=== PATIENT | female | born 1940 | race Hispanic/Latino ===

== ENCOUNTER 2018-03-22 23:09 | Emergency (ER) | payer MEDICARE ==
[2018-03-22 23:21] VITALS: BMI 30.9
[2018-03-22 23:35] VITALS: BP 140/94; PULSE 89; RESP 19; TEMP 98.2; O2SAT 94
--- NOTE | 2018-03-22 23:42 | ED PDOC ---
Arrival/HPI - General Historian: Patient - History of Present Illness Narrative History of Present Illness (Text): 03/22/18 23:42 78 yo F s/p trip and fall at 6pm while on her way to [facility]. Reports that she injured her L knee and sustained a bruise to her L eyebrow. States that she may have hit her head on the ground, but is unsure. Reports no LOC, N/V, neck pain, back pain, hip pain or any other extremity injury. <Erna Lopez PA-C - Last Filed: 03/23/18 01:12> <Gurpreet Tolbert - Last Filed: 03/23/18 02:32> - General Chief Complaint: Lower Extremity Problem/Injury Time Seen by Provider: 03/22/18 23:23 Past Medical History - Infectious Disease Hx of Infectious Diseases: None - Tetanus Immunization Tetanus Immunization: Up to Date - Cardiac Hx Hypertension: Yes Other/Comment: cardiac cath x 8-9 stents - Pulmonary Other/Comment: SOB/RODRÍGUEZ - Neurological Hx Paralysis: No - Hematological/Oncological Hx Blood Transfusions: No - Musculoskeletal/Rheumatological Hx Musculoskeletal Disorders: No - Gastrointestinal Hx Constipation: Yes Other/Comment: SBO h/o bowel resection - Psychiatric Hx Emotional Abuse: No Hx Physical Abuse: No Hx Substance Use: No - Past Surgical History Past Surgical History: No Previous - Surgical History Hx Cardiac Catheterization: Yes (stents) Other/Comment: bowel resection - Anesthesia Hx Anesthesia: Yes Hx Anesthesia Reactions: No Hx Malignant Hyperthermia: No - Suicidal Assessment Feels Threatened In Home Enviroment: No <Erna Lopez PA-C - Last Filed: 03/23/18 01:12> Family/Social History Family/Social History: Unknown Family HX Smoking Status: Never Smoked Hx Alcohol Use: No Hx Substance Use: No Hx Substance Use Treatment: No <Erna Lopez PA-C - Last Filed: 03/23/18 01:12> Allergies/Home Meds <Erna Lopez PA-C - Last Filed: 03/23/18 01:12> <Gurpreet Tolbert - Last Filed: 03/23/18 02:32> Allergies/Adverse Reactions: Allergies No Known Allergies Allergy (Verified 05/17/13 18:48) Home Medications: Home Meds Medication Instructions Recorded Confirmed Atorvastatin Calcium [Lipitor] 40 mg PO DAILY 05/17/13 03/22/18 Nitroglycerin 0.2 mg/hr 0.2 mg TD DAILY 02/18/15 03/22/18 [Nitroglycerin Transdermal System] Clopidogrel [Plavix] 75 mg PO DAILY 03/16/16 03/22/18 Irbesartan 1 tab PO DAILY 03/22/18 03/22/18 RX: Metoprolol Tartrate [Lopressor] 1 tab PO BID 03/22/18 03/22/18 Review of Systems - Review of Systems Constitutional: absent: Fatigue, Fevers Respiratory: absent: SOB, Cough Cardiovascular: absent: Chest Pain, Palpitations Gastrointestinal: absent: Abdominal Pain, Diarrhea, Vomiting Musculoskeletal: Arthralgias. absent: Back Pain, Neck Pain, Joint Swelling Skin: absent: Rash, Pruritis, Skin Lesions Neurological: absent: Headache, Dizziness <Erna Lopez PA-C - Last Filed: 03/23/18 01:12> Physical Exam Vital Signs Temp Pulse Resp BP Pulse Ox 03/22/18 23:34 98.2 F 89 19 140/94 H 94 L Temperature: Afebrile Blood Pressure: Normal Pulse: Regular Respiratory Rate: Normal Appearance: Positive for: Well-Appearing, Non-Toxic, Comfortable Pain Distress: None Mental Status: Positive for: Alert and Oriented X 3 - Systems Exam Head: Present: Atraumatic, Normocephalic, Ecchymosis (+small ~2cm area of ecchymosis to the L eyebrow) Pupils: Present: PERRL Extroacular Muscles: Present: EOMI Conjunctiva: Present: Normal Mouth: Present: Moist Mucous Membranes Neck: Present: Normal Range of Motion. No: MIDLINE TENDERNESS Respiratory/Chest: Present: Clear to Auscultation, Good Air Exchange. No: Respiratory Distress, Accessory Muscle Use, Tender to Palpation Cardiovascular: Present: Regular Rate and Rhythm, Normal S1, S2. No: Murmurs Abdomen: No: Tenderness, Distention, Peritoneal Signs Back: Present: Normal Inspection. No: Midline Tenderness Upper Extremity: Present: Normal Inspection. No: Cyanosis, Edema Lower Extremity: Present: Normal Inspection, NORMAL PULSES, Normal ROM, Neurovascularly Intact, Capillary Refill < 2 s. No: Edema, Tenderness, Swelling, Deformity, Temperature Abnormalties Neurological: Present: GCS=15, CN II-XII Intact, Speech Normal Skin: Present: Warm, Dry, Normal Color. No: Rashes Psychiatric: Present: Alert, Oriented x 3, Normal Insight, Normal Concentration <Erna Lopez PA-C - Last Filed: 03/23/18 01:12> Vital Signs Temp Pulse Resp BP Pulse Ox 03/22/18 23:34 98.2 F 89 19 140/94 H 94 L <Gurpreet Tolbert - Last Filed: 03/23/18 02:32> Medical Decision Making ED Course and Treatment: 03/22/18 23:38 Plan : - head CT - L knee XR CT head : 1. There is generalized atrophy noted as demonstrated by symmetrical dilatation of ventricles and sulci. 2. 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 3. No acute intracrani al pathology. Floyd cook MD 03/23/18 0110 XR L Knee : moderate djd, no fracture, as read by MONIE Diagnostic results d/w the patient in great detail. Bradley wrap applied. Advised RICE to the knee. Patient instructed on crutch walking. Advised to follow up with primary care physician in 1-2 days without fail. Return to the emergency room at any time for any new or worsening symptoms. Patient states she fully agrees with and understands discharge instructions. States that she agrees with the plan and disposition. Verbalized and repeated discharge instructions and plan. I have given the patient opportunity to ask any additional questions. - RAD Interpretation Radiology Orders: 03/22/18 23:23 KNEE LEFT 2 VIEWS (AP & LAT) [RAD] Stat 03/22/18 23:30 HEAD W/O CONTRAST [CT] Stat - Medication Orders Current Medication Orders: Discontinued Medications Acetaminophen (Tylenol 325mg Tab) 975 mg PO STAT STA Stop: 03/22/18 23:24 <Erna Lopez PA-C - Last Filed: 03/23/18 01:12> - RAD Interpretation Radiology Orders: 03/22/18 23:23 KNEE LEFT 2 VIEWS (AP & LAT) [RAD] Stat 03/22/18 23:30 HEAD W/O CONTRAST [CT] Stat - Medication Orders Current Medication Orders: Discontinued Medications Acetaminophen (Tylenol 325mg Tab) 975 mg PO STAT STA Stop: 03/22/18 23:24 Last Admin: 03/23/18 01:23 Dose: 975 mg MAR Pain/Vitals Document 03/23/18 01:23 RE (Rec: 03/23/18 01:29 RE [email or web address]) Pain Reassessment Is This A Pain ReAssessment? No Sleep Is patient sleeping during reassessment? No Presence of Pain Presence of Pain Yes Pain Scale Used Protocol: PSCALES Pain Scale Used Numeric Location Left, Right or Bilateral Left Pain Location Body Site Knee Description Acute <Gurpreet Tolbert - Last Filed: 03/23/18 02:32> - PA / CUSTOMER ACCOUNT EXECUTIVE / Resident Statement MD/DO has reviewed & agrees with the documentation as recorded. <Erna Lopez PA-C - Last Filed: 03/23/18 01:12> Disposition/Present on Arrival - Present on Arrival Any Indicators Present on Arrival: No History of DVT/PE: No History of Uncontrolled Diabetes: No Urinary Catheter: No History of Decub. Ulcer: No History Surgical Site Infection Following: None - Disposition Have Diagnosis and Disposition been Completed?: Yes Disposition Time: 01:15 Patient Plan: Discharge <Erna Lopez PA-C - Last Filed: 03/23/18 01:12> <Gurpreet Tolbert - Last Filed: 03/23/18 02:32> - Disposition Diagnosis: Head injury, Contracture, left knee Disposition: HOME/ ROUTINE Condition: STABLE Discharge Instructions (ExitCare): Closed Head Injury, Contusion (DC) Additional Instructions: Thank you for letting us take care of you today. You were treated for head injury, contusion L knee. The emergency medical care you received today was directed at your acute symptoms. Take only tylenol for pain. It may take several days for your symptoms to resolve. Return to the Emergency Department if your symptoms worsen, do not improve, or if you have any other problems. Please contact your doctor in 2 days for re-evaluation and follow up. Bring any paperwork you were given at discharge with you along with any medications you are taking to your follow up visit. Our treatment cannot replace ongoing medical care by a primary care provider (PCP) outside of the emergency department. Thank you for allowing the [facility] team to be part of your care today. If you had an X-Ray or CT scan: A Radiologist will review the ED reading if any change in treatment is needed we will contact you. Forms: Access [employer] ([place])
--- NOTE | 2018-03-23 11:24 | RAD ---
Date of service: 03/23/2018 PROCEDURE: Left Knee Radiographs. HISTORY: Pain. COMPARISON: None. FINDINGS: BONES: Normal. No fracture. JOINTS: Moderate tricompartmental osteoarthritis most profound at the patellofemoral articulation. No articular erosions. JOINT EFFUSION: None. OTHER FINDINGS: None. IMPRESSION: Tricompartmental osteoarthritis. No fracture
--- NOTE | 2018-03-23 15:39 | CT ---
Date of service: 03/22/2018 PROCEDURE: CT HEAD WITHOUT CONTRAST. HISTORY: head trauma COMPARISON: 05/17/2013 TECHNIQUE: Axial computed tomography images were obtained through the head/brain without intravenous contrast. Radiation dose: Total exam DLP = 907.22 mGy-cm. This CT exam was performed using one or more of the following dose reduction techniques: Automated exposure control, adjustment of the mA and/or kV according to patient size, and/or use of iterative reconstruction technique. FINDINGS: HEMORRHAGE: No intracranial hemorrhage. BRAIN: No mass effect or edema. Minimal diffuse cerebral atrophy. Moderate patchy and confluent periventricular and deep/subcortical white matter lucency consistent with microvascular ischemic change. No evidence of acute infarct. VENTRICLES: Unremarkable. No hydrocephalus. CALVARIUM: Unremarkable. PARANASAL SINUSES: Unremarkable as visualized. No significant inflammatory changes. MASTOID AIR CELLS: Unremarkable as visualized. No inflammatory changes. OTHER FINDINGS: None. IMPRESSION: No intracranial hemorrhage. Age appropriate involutional changes. Otherwise unremarkable. The preliminary findings for this examination were reported by [facility] at 1:10 a.m. on 03/23/2018. There is concurrence of this report with the preliminary findings.
== END 2018-03-23 02:10 | disposition home or self-care (01) ==
LOC: ED 23:09
DX: S09.90XA Unspecified injury of head, initial encounter (principal); W01.0XXA Fall on same level from slipping, tripping and stumbling without subsequent striking against object, initial encounter; Y92.89 Other specified places as the place of occurrence of the external cause; M24.562 Contracture, left knee

== ENCOUNTER 2018-03-26 11:56 | Inpatient (IN) | payer MEDICARE, OTHER ==
[2018-03-26 11:58] VITALS: BMI 31.7
--- NOTE | 2018-03-26 12:33 | ED PDOC ---
Arrival/HPI - General Chief Complaint: Lower Extremity Problem/Injury Time Seen by Provider: 03/26/18 12:00 Historian: Patient - History of Present Illness Narrative History of Present Illness (Text): 03/26/18 12:33 78 year old female, with past medical history of cardiac cetheterization with stents placement and on Plavix, presents to the Emergency Department complaining of left knee discomfort s/p fall prior to arrival. Patient states she was walking to the kitchen with her walker, when she tripped and had a mechanical fall with no head injury or any loss of consciousness. Patient informs worsening left knee discomfort with flexion secondary to the fall. Patient reports similar mechanical fall on Saturday and was seen in the ED with no acute findings. Patient denies any other somatic complaints. Patient denies any fever, chills, nausea, vomiting, diarrhea, abdominal pain, chest pain, shortness of breath, cough, headache, dizziness, neck pain, back pain, or any other complaints. PMD: Dr. Lopez Time/Duration: Prior to Arrival Symptom Onset: Gradual Symptom Course: Unchanged Quality: Aching Activities at Onset: Light Context: Home Past Medical History - Provider Review Nursing Documentation Reviewed: Yes - Infectious Disease Hx of Infectious Diseases: None - Tetanus Immunization Tetanus Immunization: Up to Date - Cardiac Hx Hypertension: Yes Other/Comment: cardiac cath x 8-9 stents - Pulmonary Other/Comment: SOB/RODRÍGUEZ - Neurological Hx Paralysis: No - Hematological/Oncological Hx Blood Transfusions: No - Musculoskeletal/Rheumatological Hx Musculoskeletal Disorders: No - Gastrointestinal Hx Constipation: Yes Other/Comment: SBO h/o bowel resection - Psychiatric Hx Emotional Abuse: No Hx Physical Abuse: No Hx Substance Use: No - Past Surgical History Past Surgical History: No Previous - Surgical History Hx Cardiac Catheterization: Yes (stents) Other/Comment: bowel resection - Anesthesia Hx Anesthesia: Yes Hx Anesthesia Reactions: No Hx Malignant Hyperthermia: No - Suicidal Assessment Feels Threatened In Home Enviroment: No Family/Social History - Physician Review Nursing Documentation Reviewed: Yes Family/Social History: No Known Family HX Smoking Status: Never Smoked Hx Alcohol Use: No Hx Substance Use: No Hx Substance Use Treatment: No Allergies/Home Meds Allergies/Adverse Reactions: Allergies No Known Allergies Allergy (Verified 03/26/18 18:49) Home Medications: Home Meds Medication Instructions Recorded Confirmed Atorvastatin Calcium [Lipitor] 40 mg PO DAILY 05/17/13 03/26/18 Nitroglycerin 0.2 mg/hr 0.2 mg TD DAILY 02/18/15 03/26/18 [Nitroglycerin Transdermal System] Clopidogrel [Plavix] 75 mg PO DAILY 03/16/16 03/26/18 Irbesartan 1 tab PO DAILY 03/22/18 03/26/18 RX: Metoprolol Tartrate [Lopressor] 1 tab PO BID 03/22/18 03/26/18 RX: traMADol [Ultram] 50 mg PO BID PRN 03/26/18 03/26/18 Review of Systems - Physician Review All systems were reviewed & negative as marked: Yes - Review of Systems Constitutional: absent: Fevers Respiratory: absent: SOB, Cough Cardiovascular: absent: Chest Pain Gastrointestinal: absent: Abdominal Pain, Diarrhea, Nausea, Vomiting Musculoskeletal: Arthralgias (Left knee pain). absent: Back Pain, Neck Pain Neurological: absent: Headache, Dizziness Physical Exam Vital Signs Reviewed: Yes Vital Signs Temp Pulse Resp BP Pulse Ox 03/26/18 12:03 98.5 F 72 18 125/68 96 Temperature: Afebrile Blood Pressure: Normal Pulse: Regular Respiratory Rate: Normal Appearance: Positive for: Well-Appearing, Non-Toxic, Comfortable Pain Distress: None Mental Status: Positive for: Alert and Oriented X 3 - Systems Exam Head: Present: Atraumatic, Normocephalic Pupils: Present: PERRL Extroacular Muscles: Present: EOMI Conjunctiva: Present: Normal Mouth: Present: Moist Mucous Membranes Neck: Present: Normal Range of Motion Respiratory/Chest: Present: Clear to Auscultation, Good Air Exchange. No: Respiratory Distress, Accessory Muscle Use Cardiovascular: Present: Regular Rate and Rhythm, Normal S1, S2. No: Murmurs Abdomen: No: Tenderness, Distention, Peritoneal Signs Back: Present: Normal Inspection Upper Extremity: Present: Normal Inspection. No: Cyanosis, Edema Lower Extremity: Present: Tenderness (left knee tenderness). No: Edema Neurological: Present: GCS=15, CN II-XII Intact, Speech Normal Skin: Present: Warm, Dry, Normal Color. No: Rashes Psychiatric: Present: Alert, Oriented x 3, Normal Insight, Normal Concentration Medical Decision Making ED Course and Treatment: 03/26/18 12:30 Impression: 78 year old female presents to the Emergency Department complaining of left knee discomfort s/p fall. Differential Diagnosis included but are not limited to: fracture Plan: -- CT of left Knee -- Tylenol -- Reassess and disposition Prior Visits: Notes and results from previous visits were reviewed. Progress Notes: 03/26/18 13:10 CT of left knee reviewed by radiologist, shows: FINDINGS: There are 2 separate vertically oriented fracture lines in the proximal tibia which extend into the joint surface. The wider fracture line is seen on the medial side of the tibial spine. There is a small joint effusion. Degenerative changes are seen with osteophytes arising from the femoral condyles and patella. There is bony demineralization. IMPRESSION: Comminuted vertically oriented intra-articular fractures of the proximal tibia 03/26/18 13:[address] Myles, who is aware and agrees to evaluate patient at bedside. 03/26/18 17:25 EKG: Ordered, reviewed, and independently interpreted the EKG. Rate :79 BPM Rhythm : NSR Interpretation : LBBB.No interval change from 07/25. 03/26/18 19:42 accepted by [facility]. - RAD Interpretation Radiology Orders: 03/26/18 12:23 KNEE WITHOUT CONTRAST LEFT [CT] Stat Steam Finisher: Radiologist - EKG Interpretation Interpreted by ED Physician: Yes Type: 12 lead EKG - Medication Orders Current Medication Orders: Acetaminophen (Tylenol 325mg Tab) 975 mg PO STAT STA Stop: 03/26/18 12:25 - Scribe Statement The provider has reviewed the documentation as recorded by the Scribe Anita Gusman. All medical record entries made by the Scribe were at my direction and personally dictated by me. I have reviewed the chart and agree that the record accurately reflects my personal performance of the history, physical exam, medical decision making, and the department course for this patient. I have also personally directed, reviewed, and agree with the discharge instructions and disposition. Disposition/Present on Arrival - Present on Arrival Any Indicators Present on Arrival: No History of DVT/PE: No History of Uncontrolled Diabetes: No Urinary Catheter: No History of Decub. Ulcer: No History Surgical Site Infection Following: None - Disposition Have Diagnosis and Disposition been Completed?: Yes Diagnosis: Tibial fracture Disposition: HOSPITALIZED Disposition Time: 05:00 Condition: STABLE
--- NOTE | 2018-03-26 13:31 | CT ---
Date of service: 03/26/2018 PROCEDURE: CT of the left knee without contrast HISTORY: fall, persistent pain COMPARISON: TECHNIQUE: Radiation dose: Total exam DLP = 405.06 mGy-cm. This CT exam was performed using one or more of the following dose reduction techniques: Automated exposure control, adjustment of the mA and/or kV according to patient size, and/or use of iterative reconstruction technique. FINDINGS: There are 2 separate vertically oriented fracture lines in the proximal tibia which extend into the joint surface. The wider fracture line is seen on the medial side of the tibial spine. There is a small joint effusion. Degenerative changes are seen with osteophytes arising from the femoral condyles and patella. There is bony demineralization. IMPRESSION: Comminuted vertically oriented intra-articular fractures of the proximal tibia
[2018-03-26 14:39] LABS: BASO # 0.05 K/mm3 (0.0-2.0); BASO % 0.4 % (0.0-3.0); EOS # 0.2 (0.0-0.7); EOS % 1.3 % (1.5-5.0); GRAN # 8.66 (1.4-6.5); GRAN % 76.7 % (50.0-68.0); HEMOGLOBIN 13.3 g/dL (12.0-16.0); LYMPH # 1.1 (1.2-3.4); LYMPH % 9.6 % (22.0-35.0); MEAN CELL VOLUME 90.4 fl (80.0-105.0); MEAN CORPUSCULAR HEMOGLOBIN 29.1 pg (25.0-35.0); MEAN CORPUSCULAR HGB CONC 32.2 g/dl (31.0-37.0); MEAN PLATELET VOLUME 10.6 fl (7.0-11.0); MONO # 1.4 (0.1-0.6); RBC 4.57 10^6/uL (3.5-6.1); RED CELL DISTRIBUTION WIDTH 14.7 % (11.5-14.5); WHITE BLOOD COUNT 11.3 10^3/ul (4.5-11.0)
[2018-03-26 14:48] LABS: ALB/GLOB RATIO 1.2 (1.1-1.8); ALBUMIN 4.2 g/dL (3.0-4.8); ALT/SGPT 29 U/L (7-56); AST/SGOT 41 U/L (14-36); BLOOD UREA NITROGEN 21 mg/dL (7-21); CALCIUM 9.7 mg/dL (8.4-10.5); GFR NON-AFRICAN AMERICAN > 60; INR 0.94; PARTIAL THROMBOPLASTIN TIME 22.9 Seconds (25.1-36.5); PROTHROMBIN TIME 10.7 SECONDS (9.4-12.5)
[2018-03-26] MEDS ORDERED: Morphine 2 mg/ml ISec IVP PRN (15:26)
--- NOTE | 2018-03-26 15:56 | RAD ---
Date of service: 03/26/2018 HISTORY: preop COMPARISON: 02/04/2015 FINDINGS: LUNGS: No active pulmonary disease. PLEURA: No significant pleural effusion identified, no pneumothorax apparent. CARDIOVASCULAR: No radiographic findings to suggest acute or significant cardiovascular disease. OSSEOUS STRUCTURES: No significant abnormalities. VISUALIZED UPPER ABDOMEN: Normal. OTHER FINDINGS: None. IMPRESSION: No active disease. No significant interval change compared to the prior examination(s).
--- NOTE | 2018-03-26 21:22 | CP.PCM.HP ---
<TahirAhsan - Last Filed: 03/26/18 21:40> History of Present Illness - History of Present Illness History of Present Illness: Ahsan Haro DO PGY1 - Internal Meidicine Temperature Inspector - Hospital H&P 78F w/ a PMH of CAD s/p stenting; most recent stent 2015 (ELENA), HTN, HLD, presented to [facility] on 03/26 after mechanical fall. Patient reported this past Saturday she tripped on her shoe and had injured her L knee at [facility]. Patient was discharged from ED on 03/22/17 w/ instructions for crutches, RICE and Rx for ultram. CT head performed on saturday showed no acute intracranial findings. She reported that again today while using a walker due to saturday's leg pain, she fell again. She denies any LOC, neurologic, or cardiologic symptoms at time of fall. Repeat CT Head showed no acute intracranial findings. Patient had CT of her L knee performed which showed Comminuted vertically oriented intra-articular fractures of the proximal tibia. Orthopedic was called who evaluated patient and has determined at this time no surgical intervention necessary at this time. Upon ROS: Patient did complain constipation since Saturday; most likely 2/2 PRN Ultram. Remainder of 12 system ROS is otherwise negative. PMD: [facility]: PMHx: CAD s/p R PDA and RCA stent placement (2002, 2006, 2013), chronic pain, COPD, HTN, HLD, psoriasis, anxiety PSHx: diverticulitis with colon resection Family hx: father- OR, mother- ovarian CA Social Hx: former smoker (quit 16 years ago), no alcohol or drug abuse, lives alone, 2 steps to enter into home,performs ADLs and IADLs independently, walks with walker Home Rx: Tramadol 50 BID Nitro 0.2mg patch QAM only; not on overnight Ibersartan 300QD Metoprolol tartrate 25 BID Lipitor 40 QD Present on Admission - Present on Admission Any Indicators Present on Admission: No Review of Systems - Review of Systems All systems: reviewed and no additional remarkable complaints except Review of Systems: as per HPI Past Patient History - Infectious Disease Hx of Infectious Diseases: None - Tetanus Immunizations Tetanus Immunization: Up to Date - Past Social History Smoking Status: Never Smoked - CARDIAC Hx Hypertension: Yes Other/Comment: cardiac cath x 8-9 stents - PULMONARY Other/Comment: SOB/RODRÍGUEZ - NEUROLOGICAL Hx Paralysis: No - HEMATOLOGICAL/ONCOLOGICAL Hx Blood Transfusions: No - MUSCULOSKELETAL/RHEUMATOLOGICAL Hx Musculoskeletal Disorders: No - GASTROINTESTINAL Hx Constipation: Yes Other/Comment: SBO h/o bowel resection - PSYCHIATRIC Hx Emotional Abuse: No Hx Physical Abuse: No Hx Substance Use: No - SURGICAL HISTORY Hx Cardiac Catheterization: Yes (stents) Other/Comment: bowel resection - ANESTHESIA Hx Anesthesia: Yes Hx Anesthesia Reactions: No Hx Malignant Hyperthermia: No Meds Allergies/Adverse Reactions: Allergies Allergy/AdvReac Type Severity Reaction Status Date / Time No Known Allergies Allergy Verified 03/26/18 18:49 Physical Exam - Constitutional Appears: Well, Non-toxic, No Acute Distress - Head Exam Head Exam: ATRAUMATIC, NORMOCEPHALIC - Eye Exam Eye Exam: EOMI, Normal appearance, PERRL - ENT Exam ENT Exam: Mucous Membranes Moist, Normal Exam - Neck Exam Neck exam: Positive for: Normal Inspection - Respiratory Exam Respiratory Exam: Clear to Auscultation Bilateral, NORMAL BREATHING PATTERN. absent: Rales, Rhonchi, Wheezes - Cardiovascular Exam Cardiovascular Exam: RRR, +S1, +S2. absent: Systolic Murmur - GI/Abdominal Exam GI & Abdominal Exam: Normal Bowel Sounds, Soft. absent: Tenderness - Extremities Exam Additional comments: Distal pulses in RLE 2+, extremity warm cap refill mildly delayed Distal pulses in LLE difficult to palpate, extremity warm, cap refill mildly delayed BL LE are neurovascularly intact LLE is extended, somewhat swollen relative to R, Soft splint in place RUE/LUE both with some bruising in areas of elbow/forearm - Neurological Exam Neurological exam: Alert, CN II-XII Intact, Oriented x3 - Psychiatric Exam Psychiatric exam: Normal Mood - Skin Skin Exam: Dry, Intact, Normal Color, Warm Results - Vital Signs Recent Vital Signs: Last Vital Signs Temp 98.5 F 03/26/18 12:03 Pulse 72 03/26/18 17:15 Resp 18 03/26/18 17:15 BP 115/59 L 03/26/18 17:15 Pulse Ox 94 L 03/26/18 17:15 - Labs Result Diagrams: 03/26/18 14:00 03/26/18 14:00 Labs: Laboratory Results - last 24 hr 03/26/18 03/26/18 03/26/18 14:00 14:00 14:00 WBC 11.3 H D RBC 4.57 Hgb 13.3 Hct 41.3 MCV 90.4 MCH 29.1 MCHC 32.2 RDW 14.7 H Plt Count 352 MPV 10.6 Gran % 76.7 H Lymph % (Auto) 9.6 L Glades % (Auto) 12.0 H Eos % (Auto) 1.3 L Baso % (Auto) 0.4 Gran # 8.66 H Lymph # (Auto) 1.1 L Glades # (Auto) 1.4 H Eos # (Auto) 0.2 Baso # (Auto) 0.05 PT 10.7 INR 0.94 APTT 22.9 L Sodium 139 Potassium 3.9 Chloride 102 Carbon Dioxide 28 Anion Gap 13 BUN 21 Creatinine 0.9 Est GFR ( Amer) > 60 Est GFR (Non-Af Amer) > 60 Random Glucose 146 H Calcium 9.7 Total Bilirubin 1.1 AST 41 H ALT 29 Alkaline Phosphatase 100 Total Protein 7.6 Albumin 4.2 Globulin 3.4 Albumin/Globulin Ratio 1.2 Blood Type Blood Type Confirm Antibody Screen BBK History Checked 03/26/18 03/26/18 14:00 14:40 WBC RBC Hgb Hct MCV MCH MCHC RDW Plt Count MPV Gran % Lymph % (Auto) Glades % (Auto) Eos % (Auto) Baso % (Auto) Gran # Lymph # (Auto) Glades # (Auto) Eos # (Auto) Baso # (Auto) PT INR APTT Sodium Potassium Chloride Carbon Dioxide Anion Gap BUN Creatinine Est GFR ( Amer) Est GFR (Non-Af Amer) Random Glucose Calcium Total Bilirubin AST ALT Alkaline Phosphatase Total Protein Albumin Globulin Albumin/Globulin Ratio Blood Type O NEGATIVE Blood Type Confirm O NEGATIVE Antibody Screen Negative BBK History Checked No verified bt Assessment & Plan - Assessment and Plan (Free Text) Assessment: 78F w/ a PMH of CAD s/p stenting; most recent stent 2015 (ELENA), HTN, HLD, presented to [facility] on 03/26 after mechanical fall. Patient was subsequently admi tted for management and monitoring of L tibial fx and pain management 2/2 L tibial fx. PLAN: LLE Fracture: No plans for orthopedic intervention at this time; however we will complete a pre-operative work up pending the possibility of orthopedic i ntervention. Patient in the interim will be undergoing PT evaluation and therapy as well as pain management. CT LLE: Comminuted vertically oriented intra-articular fractures of the proximal tibia CXR - WNL; EKG - NSR 77 w/ LBB QTc 477 PT PTT INR : 10.7/22.9/0.94 Typed and Cross CBC/CMP grossly wnl; leukocytosis most likely stress induced Previous Echo 03/25 - EF 47.6% Pain management: Ultram 50 BID PRN severe pain, Tylenol 650 Q6 PRN moderate pain Orthopedic Dr. Myles consulted, appreciate reccs Cardiology Dr. Brewer consulted, appreciate reccs *PLEASE KEEP PT. NON WT BEARING ON LLE* HLD - Lipitor 40 Q CAD s/p stent - C/w DAPT ASA81 + Plavix 75 QD ; Metoprolol 25 BID HTN - Cozaar 100 QD PPX - GI: Protonix 40 // DVT: SCD DISPO: Patient will have continued inpatient admission for management of pain 2/2 LLE Fx. Fx will continually be evaluated while patient is undergoing PT for necessity of orthopedic intervention. Please follow up PT, Case Management, and Social Work referrals. Patient was seen, examined, and discussed w/ attending physician Dr. Dawood Haro DO PGY1 - Internal Medicine Temperature Inspector - Hospital Progress Note - Date & Time Date: 03/26/18 Time: 22:07 <Perry Seay - Last Filed: 03/27/18 18:28> Results - Vital Signs Recent Vital Signs: Last Vital Signs Temp 98.2 F 03/27/18 14:00 Pulse 84 03/27/18 14:00 Resp 18 03/27/18 14:00 BP 106/53 L 03/27/18 14:00 Pulse Ox 96 03/27/18 14:00 - Labs Result Diagrams: 03/27/18 06:30 03/27/18 06:20 Labs: Laboratory Results - last 24 hr 03/27/18 03/27/18 03/27/18 06:20 06:30 07:20 WBC 11.0 RBC 4.08 Hgb 11.6 L Hct 37.2 MCV 91.2 MCH 28.4 MCHC 31.2 RDW 14.8 H Plt Count 306 MPV 10.4 Gran % 68.7 H Lymph % (Auto) 15.2 L Glades % (Auto) 13.0 H Eos % (Auto) 2.6 Baso % (Auto) 0.5 Gran # 7.57 H Lymph # (Auto) 1.7 Glades # (Auto) 1.4 H Eos # (Auto) 0.3 Baso # (Auto) 0.06 PT 11.5 INR 1.00 APTT 24.9 L Sodium 137 Potassium 4.7 Chloride 101 Carbon Dioxide 30 Anion Gap 11 BUN 26 H Creatinine 1.2 Est GFR ( Amer) 53 Est GFR (Non-Af Amer) 43 Random Glucose 115 H Calcium 9.5 Phosphorus 4.2 Magnesium 2.2 Total Bilirubin 1.1 AST 45 H ALT 28 Alkaline Phosphatase 92 Total Protein 6.8 Albumin 3.7 Globulin 3.1 Albumin/Globulin Ratio 1.2 Attending/Attestation - Attestation I have personally seen and examined this patient.: Yes I have fully participated in the care of the patient.: Yes I have reviewed all pertinent clinical information: Yes Notes (Text): 03/27/18 18:25 attending note; Patient seen and examined with resident in ER. Patient is alert and awake. Patient's son by the bedside. Patient is a 78 -year-old female with a past medical history of CAD s/p stenting; most recent stent 2015 (ELENA), HTN, HLD, presented to [facility] on 03/26 after mechanical fall. Patient reported this past Saturday she tripped on her shoe and had injured her L knee at [facility]. Patient was discharged from ED on 03/22/17 w/ instructions for crutches and ultram. the patient fell again. Currently getting admitted for a left tibial fracture. Patient is on a immobilizer. Orthopedic evaluation appreciated. No plan for surgery. History of coronary artery disease and stent placement; continue aspirin and Plavix. hypertension; continue metoprolol and Cozaar. physical therapy evaluation requested. Upon discharge the patient will follow up with PMD .
[2018-03-26] MEDS ORDERED: Influenza Vaccine 60 mcg/0.5 mL SYR (4YR UP) IM ONE (21:56)
[2018-03-26] MEDS ORDERED: Pneumococcal 23-Valent Vaccine IM ONE (21:56)
--- NOTE | 2018-03-27 03:07 | CON ---
DATE: 03/26/2018 The patient is seen for orthopedic consult on 03/26/2018. She is a 78-year-old female who lives at home alone, slipped and fell approximately on 03/23/2018 and injured her left knee, came to the ER with knee pain, very little effusion, and she was discharged _but pain persisted so she came back in today. CAT scan shows a nondisplaced fracture of the left tibial plateau, medial plateau fracture with a long oblique component about 4 inches while going down to the cortex about 4 inches below the knee joint, but minimally displaced, very little effusion, and the patient will be admitted because she lives alone and cannot ambulate effectively with nonweightbearing because of her age, so I have to provide her with some physical therapy to maintain strength and to avoid weightbearing on the left leg, so I will give her a walker to see if she could be good with nonweightbearing and eventually after this hospital stay, she should seriously consider subacute rehab like [facility] for at least 3 to 4 weeks until she could put a little weight on her leg and as the fracture heals, there will be more ability to put some weight on the left knee in approximately 3 or 4 weeks. Hopefully, she would go to the subacute rehab for protected weightbearing of that left knee. I will probably allow touch toe pressures once she has a knee immobilizer on, which I put on today. She has good neurologic status. She was admitted to the hospital with a minimally displaced tibial plateau fracture, medial side and put in the knee immobilizer on, touch toe pressure to no weightbearing, and to get serial x-rays every week for next 3 weeks to make sure the fracture is not moving. If the fracture decides to slip in or displaced, we have to do open reduction and internal fixation. FINAL DIAGNOSIS: Minimally displaced fracture, left tibial plateau, medial plateau. Jarod Myles, DO [facility] # [id number] MTDD
[2018-03-27 07:16] LABS: BASO # 0.06 K/mm3 (0.0-2.0); BASO % 0.5 % (0.0-3.0); EOS # 0.3 (0.0-0.7); EOS % 2.6 % (1.5-5.0); GRAN # 7.57 (1.4-6.5); GRAN % 68.7 % (50.0-68.0); HEMOGLOBIN 11.6 g/dL (12.0-16.0); LYMPH # 1.7 (1.2-3.4); LYMPH % 15.2 % (22.0-35.0); MEAN CELL VOLUME 91.2 fl (80.0-105.0); MEAN CORPUSCULAR HEMOGLOBIN 28.4 pg (25.0-35.0); MEAN CORPUSCULAR HGB CONC 31.2 g/dl (31.0-37.0); MEAN PLATELET VOLUME 10.4 fl (7.0-11.0); MONO # 1.4 (0.1-0.6); RBC 4.08 10^6/uL (3.5-6.1); RED CELL DISTRIBUTION WIDTH 14.8 % (11.5-14.5)
[2018-03-27 07:22] LABS: ALB/GLOB RATIO 1.2 (1.1-1.8); ALBUMIN 3.7 g/dL (3.0-4.8); CALCIUM 9.5 mg/dL (8.4-10.5)
[2018-03-27 07:54] LABS: PARTIAL THROMBOPLASTIN TIME 24.9 Seconds (25.1-36.5); PROTHROMBIN TIME 11.5 SECONDS (9.4-12.5)
--- NOTE | 2018-03-27 09:41 | PN ---
DATE: 03/27/2018 UPDATED REPORT LOCATION: A 78-year-old female in room 564, bed 1. SUBJECTIVE: The patient came into the hospital on 03/26/2018 with a history of falling at home, sustaining a nondisplaced fracture to left tibial plateau from the medial side and she originally did this 2 days prior to admission, but since the fracture is not out of place, she could gently do range of motion. No undue swelling. We are going to plan on sending her to subacute rehab where she could be ambulatory, but nonweightbearing or just touch toe pressure 4 to 6 weeks. Then, she will be able to ambulate with more weightbearing and we will get periodic x-rays to make sure the fracture does not swell. Hopefully, she could go to her rehab hospital or subacute that is close to her family's home as she does live alone. So, she can go to a subacute rehab when she is medically cleared with the instructions of just doing touch toe pressure and no stairs should be done and just gentle exercises like quad sets and straight leg raising and have DVT precautions for 3 weeks. Jarod Myles DO
--- NOTE | 2018-03-27 10:27 | CARD ---
APPROVED REPORT Date of service: 03/26/2018 EKG Measurement Heart [id number] <Conclusion> Normal sinus rhythm Left bundle branch block Abnormal ECG
--- NOTE | 2018-03-27 16:37 | CARD ---
APPROVED REPORT Date of service: 03/27/2018 EXAM: Two-dimensional and M-mode echocardiogram with Doppler and color Doppler. INDICATION Pre-Op 2D DIMENSIONS Left Atrium (2D)5.7 (1.6-4.0cm)IVSd1.2 (0.7-1.1cm) LVDd4.3 (3.9-5.9cm)LVOT Diameter2.1 (1.8-2.4cm) PWd1.3 (0.7-1.1cm)LVDs3.5 (2.5-4.0cm) FS (%) 19.8 %LVEF (%)40.9 (>50%) M-Mode DIMENSIONS Aortic Root3.20 (2.2-3.7cm)Aortic Cusp Exc.0.90 (1.5-2.0cm) Aortic Valve AoV Peak Nuhntxbd109.0cm/sAoV VTI55.0cmAO Peak GR.31mmHg LVOT Peak Tthdtefo76.6cm/sLVOT VTI20.00cmAO Mean GR.17mmHg CURLY (VMAX)1.17li2FIQ (VTI)1.26cm2 Mitral Valve MV E Jyzwayix00.7cm/sMV A Nioccuyl257.0cm/sE/A ratio0.6 TDI Lateral E' Peak V6.82cm/sMedial E' Peak V5.17cm/sE/Lateral E'11.4 E/Medial E'15.0 Pulmonary Valve PV Peak Bwubjwbr903.0cm/sPV Peak Grad.4mmHg Tricuspid Valve TR Peak Ntnggfez363ds/sRAP [id number] Peak Gr.29mmHg [id number] LEFT VENTRICLE The left ventricle is normal size. There is borderline concentric left ventricular hypertrophy. The systolic function is moderately impaired. Septal motion consistent with conduction abnormality. Transmitral Doppler flow pattern is Grade I-abnormal relaxation pattern. No left ventricle thrombus noted on this study. RIGHT VENTRICLE The right ventricle is normal size. There is normal right ventricular wall thickness. The right ventricular systolic function is normal. ATRIA The left atrium is moderately dilated. The right atrium is mildly dilated. AORTIC VALVE The aortic valve is moderately sclerotic. No aortic regurgitation is present. There is mild valvular aortic stenosis. MITRAL VALVE The mitral valve is moderately thickened. Mitral annular calcification is mild to moderate. There is no mitral valve regurgitation noted. There is no mitral valve stenosis. TRICUSPID VALVE The tricuspid valve is normal in structure. There is mild tricuspid regurgitation. There is mild pulmonary hypertension. PULMONIC VALVE The pulmonary valve is normal in structure. There is no pulmonic valvular regurgitation. GREAT VESSELS The aortic root is normal in size. <Conclusion> The left ventricle is normal size. There is borderline concentric left ventricular hypertrophy. The systolic function is moderately impaired. Septal motion consistent with conduction abnormality. Transmitral Doppler flow pattern is Grade I-abnormal relaxation pattern. There is mild valvular aortic stenosis. There is mild tricuspid regurgitation. There is mild pulmonary hypertension.
--- NOTE | 2018-03-27 20:04 | CP.PCM.PN ---
<Ahsan Haro - Last Filed: 03/27/18 20:01> Subjective - Date & Time of Evaluation Date of Evaluation: 03/27/18 Time of Evaluation: 20:01 - Subjective Subjective: Ahsan Haro DO PGY1 Internal Medicine Electronic Warfare Linguist Hospital Progress Note Patient was seen, examined, this AM at bedside NO acute events overnight Still having some c/o pain from left leg remainder of ROS is otherwise negative. Objective - Vital Signs/Intake and Output Vital Signs (last 24 hours): Temp Pulse Resp BP Pulse Ox 98.2 F 84 18 106/53 L 96 03/27/18 14:00 03/27/18 14:00 03/27/18 14:00 03/27/18 14:00 03/27/18 14:00 Intake and Output: 03/27/18 03/28/18 18:59 06:59 Intake Total 960 Balance 960 - Medications Medications: Current Medications Acetaminophen (Tylenol 325mg Tab) 650 mg PO Q6H PRN PRN Reason: Pain, Mild (1-3) Aspirin (Aspirin Chewable) 81 mg PO DAILY [facility] Last Admin: 03/27/18 09:20 Dose: 81 mg Atorvastatin Calcium (Lipitor) 40 mg PO DIN [facility] Last Admin: 03/27/18 18:31 Dose: 40 mg Clopidogrel Bisulfate (Plavix) 75 mg PO DAILY [facility] Last Admin: 03/27/18 09:20 Dose: 75 mg Enoxaparin Sodium (Lovenox) 40 mg SC DAILY [facility]; Protocol Losartan Potassium (Cozaar) 100 mg PO DAILY [facility] Last Admin: 03/27/18 09:20 Dose: 100 mg Metoprolol Tartrate (Lopressor) 25 mg PO BID [facility] Last Admin: 03/27/18 18:31 Dose: 25 mg Pantoprazole Sodium (Protonix Ec Tab) 40 mg PO 0600 [facility] Tramadol HCl (Ultram) 50 mg PO BID PRN PRN Reason: Pain, moderate (4-7) Last Admin: 03/27/18 13:53 Dose: 50 mg - Labs Labs: 03/27/18 06:30 03/27/18 06:20 PT 11.5 SECONDS (9.4-12.5) 03/27/18 07:20 INR 1.00 03/27/18 07:20 APTT 24.9 Seconds (25.1-36.5) L 03/27/18 07:20 Physical Exam - Constitutional Appears: Well, Non-toxic, No Acute Distress - Head Exam Head Exam: ATRAUMATIC, NORMOCEPHALIC - Eye Exam Eye Exam: EOMI, Normal appearance, PERRL - ENT Exam ENT Exam: Mucous Membranes Moist, Normal Exam - Neck Exam Neck exam: Positive for: Normal Inspection - Respiratory Exam Respiratory Exam: Clear to Auscultation Bilateral, NORMAL BREATHING PATTERN. absent: Rales, Rhonchi, Wheezes - Cardiovascular Exam Cardiovascular Exam: RRR, +S1, +S2. absent: Systolic Murmur - GI/Abdominal Exam GI & Abdominal Exam: Normal Bowel Sounds, Soft. absent: Tenderness - Extremities Exam Additional comments: Distal pulses in RLE 2+, extremity warm cap refill mildly delayed Distal pulses in LLE difficult to palpate, extremity warm, cap refill mildly delayed BL LE are neurovascularly intact LLE is extended, somewhat swollen relative to R, Soft splint in place RUE/LUE both with some bruising in areas of elbow/forearm - Neurological Exam Neurological exam: Alert, CN II-XII Intact, Oriented x3 - Psychiatric Exam Psychiatric exam: Normal Mood - Skin Skin Exam: Dry, Intact, Normal Color, Warm Assessment and Plan - Assessment and Plan (Free Text) Assessment: 78F w/ a PMH of CAD s/p stenting; most recent stent 2014 (ELENA), HTN, HLD, presented to [facility] on 03/26 after mechanical fall. Patient was subsequently admitted for management and monitoring of L tibial fx and pain management 2/2 L tibial fx. As per Ortho patient is to be NWB on her LLE for 4-6 weeks, she will received PT inpt and eventually in [facility]. PLAN: LLE Fracture: No plans for orthopedic intervention at this time; Continue w/ PT evaluation and therapy as well as pain management. CT LLE: Comminuted vertically oriented intra-articular fractures of the proximal tibia CXR - WNL; EKG - NSR 77 w/ LBB QTc 477 PT PTT INR : 10.7/22.9/0.94 Typed and Cross CBC/CMP grossly wnl; leukocytosis most likely stress induced Previous Echo 03/2016 - EF 47.6% Repeat Echo 03/2018 - EF 40.9% Orthopedic Dr. Myles consulted, appreciate [facility] Cardiology Dr. Brewer consulted, appreciate reccs *PLEASE KEEP PT. NON WT BEARING ON LLE* Pain management: Ultram 40 BID PRN severe pain Tylenol 650 Q6 PRN moderate pain Physical Therapy: Patient was previously fully independent At this time is NWB on her L LE. Pt will benefit from skilled PT and [facility] to improve her balance, gait, transfers, to improve her functional mobility, maximize her independenc. Pt was Ind with all HLD - Lipitor 40 Q CAD s/p stent - C/w DAPT ASA81 + Plavix 75 QD ; Metoprolol 25 BID HTN - Cozaar 100 QD PPX - GI: Protonix 40 // DVT: SCD + Lovenox DISPO: Patient will have continued inpatient admission for management of pain 2/2 LLE Fx. Fx will continually be evaluated while patient is undergoing PT for necessity of orthopedic intervention. Please follow up PT, Case Management, and Social Work referrals. The plan is for the patient to be medically optimized for [facility] where she can regain strength and function in her LLE. Pt. is to f/u w/ PMD Dr. Lopez once she is discharged. Patient was seen, examined, and discussed w/ attending physician Dr. Dawood Haro DO PGY1 - Internal Medicine Electronic Warfare Linguist - Hospital Progress Note <Perry Seay - Last Filed: 03/29/18 12:59> Objective - Vital Signs/Intake and Output Vital Signs (last 24 hours): Temp Pulse Resp BP Pulse Ox 97.8 F 82 20 134/57 L 91 L 03/29/18 08:39 03/29/18 08:39 03/29/18 08:39 03/29/18 08:39 03/29/18 08:39 Intake and Output: 03/29/18 03/29/18 06:59 18:59 Intake Total 620 Balance 620 - Medications Medications: Current Medications Acetaminophen (Tylenol 325mg Tab) 650 mg PO Q6H PRN PRN Reason: Pain, Mild (1-3) Aspirin (Aspirin Chewable) 81 mg PO DAILY [facility] Last Admin: 03/29/18 10:11 Dose: 81 mg Atorvastatin Calcium (Lipitor) 40 mg PO DIN [facility] Last Admin: 03/27/18 18:31 Dose: 40 mg Clopidogrel Bisulfate (Plavix) 75 mg PO DAILY [facility] Last Admin: 03/29/18 10:11 Dose: 75 mg Enoxaparin Sodium (Lovenox) 40 mg SC DAILY [facility]; Protocol Last Admin: 03/29/18 10:12 Dose: 40 mg Losartan Potassium (Cozaar) 100 mg PO DAILY [facility] Last Admin: 03/29/18 10:11 Dose: 100 mg Metoprolol Tartrate (Lopressor) 25 mg PO BID [facility] Last Admin: 03/29/18 10:11 Dose: 25 mg Pantoprazole Sodium (Protonix Ec Tab) 40 mg PO 0600 [facility] Last Admin: 03/29/18 06:18 Dose: 40 mg Tramadol HCl (Ultram) 50 mg PO BID PRN PRN Reason: Pain, moderate (4-7) Last Admin: 03/28/18 15:59 Dose: 50 mg - Labs Labs: 03/29/18 09:40 03/29/18 09:30 PT 11.5 SECONDS (9.4-12.5) 03/27/18 07:20 INR 1.00 03/27/18 07:20 APTT 24.9 Seconds (25.1-36.5) L 03/27/18 07:20 Attending/Attestation - Attestation I have personally seen and examined this patient.: Yes I have fully participated in the care of the patient.: Yes I have reviewed all pertinent clinical information, including history, physical exam and plan: Yes Notes (Text): 03/29/18 12:58 attending note; Patient seen and examined with resident. Patient is alert and awake. Patient's son by the bedside. Patient is a 78 -year-old female with a past medical history of CAD s/p stenting; most recent stent 2015 (ELENA), HTN, HLD is admitted for a left tibial fracture. Patient is on a immobilizer. Orthopedic evaluation appreciated. No plan for surgery. History of coronary artery disease and stent placement; continue aspirin and Plavix. Cardiology evaluation appreciated. hypertension; continue metoprolol and Cozaar. physical therapy evaluation appreciated. Refer to subacute rehabilitation. Case discussed with assistant case manager in detail. Upon discharge the patient will follow up with PMD .
--- NOTE | 2018-03-28 03:50 | CON ---
DATE: 03/27/2018 CARDIOLOGY CONSULT REASON FOR CONSULTATION: Coronary artery disease, status post coronary artery stenting in the recent fall with comminuted left proximal tibia intra-articular fracture. HISTORY OF PRESENT ILLNESS: The patient is a 78-year-old white female, who has a history of coronary artery disease, underwent coronary artery stenting a few years ago and has been on aspirin and Plavix since then. The patient sustained a fall related to stocking that she was wearing and that stuck in a piece of furniture, and she lost balance, collapsed on the floor on her left knee. The patient denied any dizziness or loss of consciousness and reports no chest pain or palpitation. The patient denies any similar fall episodes in the past. SOCIAL HISTORY: Nonsmoker, nondrinker. MEDICATIONS: Aspirin 81 mg once a day, Cozaar 100 mg once a day, Lipitor 40 mg once a day, Lopressor 25 mg twice a day, Plavix 75 mg once a day, Protonix 40 mg once a day, tramadol 50 mg p.o. twice a day p.r.n. REVIEW OF SYSTEMS: No nausea or vomiting. No fever or chills. No palpitation and no dizziness. PHYSICAL EXAMINATION: GENERAL: The patient is elderly female, who does not appear to be in acute distress. VITAL SIGNS: Blood pressure 101/52, heart rate 91, temperature 98, respirations 18. HEENT: Normocephalic. CHEST: Clear. HEART: S1, S2 regular. ABDOMEN: Soft. EXTREMITIES: No pedal edema. EKG revealed sinus rhythm at rate of 79, left bundle-branch block. The most recent EKG on record was from 02/2015 when she underwent her PCI and it did reveal a left bundle-branch block. In 02/2015, the patient underwent PCI, stenting to two lesions in the right coronary artery with drug-eluting stent. LABORATORY DATA: Hemoglobin and hematocrit are 11.6 and 37.2, white count and platelet count are within normal limit. SMA-7, sodium 137, potassium 4.7, chloride 101, CO2 of 30, glucose 115, BUN 26, creatinine 1.2. ASSESSMENT: 1. Status post mechanical fall with comminuted intra-articular left tibia fracture. No surgery. The patient was evaluated by Dr. Myles, and no surgical intervention is planned unless if the fracture decides to slip and/or is displaced. 2. Coronary artery disease with history of coronary artery stenting to right coronary artery in 02/2015. 3. Hypertension. MEDICATIONS: Continue aspirin 81 mg once a day, Cozaar 100 mg once a day, Lipitor 40 mg once a day, Lopressor 25 mg once a day, Plavix 75 mg once a day. I would review the echocardiograph study performed today. Frank Olivia MD
[2018-03-28] MEDS: Pantoprazole 40 mg EC Tab PO SCH (06:10)
[2018-03-28 07:56] VITALS: RESP 20
[2018-03-28] MEDS: Enoxaparin 40 mg Syringe SC SCH ×2 (10:14→10:19)
--- NOTE | 2018-03-28 12:15 | PN ---
DATE: 03/28/2018 FOLLOWUP SUBJECTIVE: The patient denies any chest pain or shortness of breath. PHYSICAL EXAMINATION: VITAL SIGNS: Blood pressure 157/65, heart rate 78, temperature 98, respirations 20. HEENT: Normocephalic. CHEST: Clear. HEART: S1 and S2 regular. EXTREMITIES: No edema. Echocardiography study revealed borderline concentric LVH with moderately depressed ejection fraction, which was measured at 41%. Mild valvular aortic stenosis. Mild pulmonary hypertension. ASSESSMENT: 1. Status post a mechanical fall and comminuted left intraarticular tibial fracture, minimally displaced. 2. Coronary artery disease with history of coronary artery stenting in the past. 3. Mild aortic stenosis. 4. Moderately depressed ejection fraction. RECOMMENDATIONS: Continue aspirin and Plavix therapy. Continue Cozaar at 100 mg once a day, Lipitor at 40 mg once a day, Lopressor 25 mg twice a day, Protonix 40 mg p.o. once a day. The plan is to transfer the patient to subacute rehab tomorrow. Frank Olivia MD
--- NOTE | 2018-03-28 18:29 | CP.PCM.PN ---
<Ahsan Haro - Last Filed: 03/28/18 18:25> Subjective - Date & Time of Evaluation Date of Evaluation: 03/28/18 Time of Evaluation: 18:25 - Subjective Subjective: Ahsan Haro DO PGY1 Internal medicine Hot End Operator - Hospital progress note Pt. seen and examined at bedside NO acute events overnight pt. is tolerating physical therapy well. Objective - Vital Signs/Intake and Output Vital Signs (last 24 hours): Temp Pulse Resp BP Pulse Ox 98 F 78 20 157/65 H 95 03/28/18 06:00 03/28/18 10:15 03/28/18 06:00 03/28/18 10:15 03/28/18 06:00 Intake and Output: 03/28/18 03/28/18 06:59 18:59 Intake Total 1320 Balance 1320 - Medications Medications: Current Medications Acetaminophen (Tylenol 325mg Tab) 650 mg PO Q6H PRN PRN Reason: Pain, Mild (1-3) Aspirin (Aspirin Chewable) 81 mg PO DAILY [facility] Last Admin: 03/28/18 10:15 Dose: 81 mg Atorvastatin Calcium (Lipitor) 40 mg PO DIN [facility] Last Admin: 03/27/18 18:31 Dose: 40 mg Clopidogrel Bisulfate (Plavix) 75 mg PO DAILY [facility] Last Admin: 03/28/18 10:15 Dose: 75 mg Enoxaparin Sodium (Lovenox) 40 mg SC DAILY [facility]; Protocol Last Admin: 03/28/18 10:19 Dose: Not Given Losartan Potassium (Cozaar) 100 mg PO DAILY [facility] Last Admin: 03/28/18 10:15 Dose: 100 mg Metoprolol Tartrate (Lopressor) 25 mg PO BID [facility] Last Admin: 03/28/18 10:15 Dose: 25 mg Pantoprazole Sodium (Protonix Ec Tab) 40 mg PO 0600 [facility] Last Admin: 03/28/18 06:10 Dose: 40 mg Tramadol HCl (Ultram) 50 mg PO BID PRN PRN Reason: Pain, moderate (4-7) Last Admin: 03/28/18 15:59 Dose: 50 mg - Labs Labs: 03/27/18 06:30 03/27/18 06:20 PT 11.5 SECONDS (9.4-12.5) 03/27/18 07:20 INR 1.00 03/27/18 07:20 APTT 24.9 Seconds (25.1-36.5) L 03/27/18 07:20 Physical Exam - Constitutional Appears: Well, Non-toxic, No Acute Distress - Head Exam Head Exam: ATRAUMATIC, NORMOCEPHALIC - Eye Exam Eye Exam: EOMI, Normal appearance, PERRL - ENT Exam ENT Exam: Mucous Membranes Moist, Normal Exam - Neck Exam Neck exam: Positive for: Normal Inspection - Respiratory Exam Respiratory Exam: Clear to Auscultation Bilateral, NORMAL BREATHING PATTERN. absent: Rales, Rhonchi, Wheezes - Cardiovascular Exam Cardiovascular Exam: RRR, +S1, +S2. absent: Systolic Murmur - GI/Abdominal Exam GI & Abdominal Exam: Normal Bowel Sounds, Soft. absent: Tenderness - Extremities Exam Additional comments: Distal pulses in RLE 2+, extremity warm cap refill mildly delayed Distal pulses in LLE difficult to palpate, extremity warm, cap refill mildly delayed BL LE are neurovascularly intact LLE is extended, somewhat swollen relative to R, Soft splint in place RUE/LUE both with some bruising in areas of elbow/forearm - Neurological Exam Neurological exam: Alert, CN II-XII Intact, Oriented x3 - Psychiatric Exam Psychiatric exam: Normal Mood - Skin Skin Exam: Dry, Intact, Normal Color, Warm Assessment and Plan - Assessment and Plan (Free Text) Assessment: 78F w/ a PMH of CAD s/p stenting; most recent stent 2014 (ELENA), HTN, HLD, presented to [facility] on 03/26 after mechanical fall. Patient was subsequently admitted for management and monitoring of L tibial fx and pain management 2/2 L tibial fx. As per Ortho patient is to be NWB on her LLE for 4-6 weeks, she will received PT inpt, she has been accepted to [facility] and will be transferred there tomorrow. PLAN: LLE Fracture: No plans for orthopedic intervention at this time; Continue w/ PT evaluation and therapy as well as pain management. CT LLE: Comminuted vertically oriented intra-articular fractures of the proximal tibia CXR - WNL; EKG - NSR 77 w/ LBB QTc 477 PT PTT INR : 10.7/22.9/0.94 Typed and Cross CBC/CMP grossly wnl; leukocytosis most likely stress induced Previous Echo 03/2016 - EF 47.6% Repeat Echo 03/2018 - EF 40.9% Orthopedic Dr. Myles consulted, appreciate reccs Cardiology Dr. Olivia following; reccs are to continue home medications as prescribed; echo was reviewed; no changes to be made at this time. *PLEASE KEEP PT. NON WT BEARING ON LLE* Pain management: Ultram 40 BID PRN severe pain Tylenol 650 Q6 PRN moderate pain Physical Therapy: Patient was previously fully independent At this time is NWB on her L LE. Pt will benefit from skilled PT and CARLY to improve her balance, gait, transfers, to improve her functional mobility, maxim ize her independenc. Pt was Ind with all HLD - Lipitor 40 Q CAD s/p stent - C/w DAPT ASA81 + Plavix 75 QD ; Metoprolol 25 BID HTN - Cozaar 100 QD PPX - GI: Protonix 40 // DVT: SCD + Lovenox DISPO: Patient will have continued inpatient admission for management of pain 2/2 LLE Fx. Fx will continually be evaluated while patient is undergoing PT for necessity of orthopedic intervention. Please follow up PT, Case Management, and Social Work referrals. The plan is for the patient to be medically optimized for CARLY where she can regain strength and function in her LLE. She will be transferred to [facility] tomorrow on 03/29 Pt. is to f/u w/ PMD Dr. Lopez once she is discharged. Patient was seen, examined, and discussed w/ attending physician Dr. Dawood Haro DO PGY1 - Internal Medicine Hot End Operator - Hospital Progress Note <Perry Seay - Last Filed: 03/29/18 13:00> Objective - Vital Signs/Intake and Output Vital Signs (last 24 hours): Temp Pulse Resp BP Pulse Ox 97.8 F 82 20 134/57 L 91 L 03/29/18 08:39 03/29/18 08:39 03/29/18 08:39 03/29/18 08:39 03/29/18 08:39 Intake and Output: 03/29/18 03/29/18 06:59 18:59 Intake Total 620 Balance 620 - Medications Medications: Current Medications Acetaminophen (Tylenol 325mg Tab) 650 mg PO Q6H PRN PRN Reason: Pain, Mild (1-3) Aspirin (Aspirin Chewable) 81 mg PO DAILY [facility] Last Admin: 03/29/18 10:11 Dose: 81 mg Atorvastatin Calcium (Lipitor) 40 mg PO DIN [facility] Last Admin: 03/27/18 18:31 Dose: 40 mg Clopidogrel Bisulfate (Plavix) 75 mg PO DAILY [facility] Last Admin: 03/29/18 10:11 Dose: 75 mg Enoxaparin Sodium (Lovenox) 40 mg SC DAILY [facility]; Protocol Last Admin: 03/29/18 10:12 Dose: 40 mg Losartan Potassium (Cozaar) 100 mg PO DAILY [facility] Last Admin: 03/29/18 10:11 Dose: 100 mg Metoprolol Tartrate (Lopressor) 25 mg PO BID [facility] Last Admin: 03/29/18 10:11 Dose: 25 mg Pantoprazole Sodium (Protonix Ec Tab) 40 mg PO 0600 [facility] Last Admin: 03/29/18 06:18 Dose: 40 mg Tramadol HCl (Ultram) 50 mg PO BID PRN PRN Reason: Pain, moderate (4-7) Last Admin: 03/28/18 15:59 Dose: 50 mg - Labs Labs: 03/29/18 09:40 03/29/18 09:30 PT 11.5 SECONDS (9.4-12.5) 03/27/18 07:20 INR 1.00 03/27/18 07:20 APTT 24.9 Seconds (25.1-36.5) L 03/27/18 07:20 Attending/Attestation - Attestation I have personally seen and examined this patient.: Yes I have fully participated in the care of the patient.: Yes I have reviewed all pertinent clinical information, including history, physical exam and plan: Yes Notes (Text): 03/29/18 13:00 attending note; Patient seen and examined with resident. Patient is alert and awake. Patient is a 78 -year-old female with a past medical history of CAD s/p stenting; most recent stent 2015 (ELENA), HTN, HLD is admitted for a left tibial fracture. Patient is on a immobilizer. Orthopedic evaluation appreciated. No plan for surgery. History of coronary artery disease and stent placement; continue aspirin and Plavix. Cardiology evaluation appreciated. hypertension; continue metoprolol and Cozaar. physical therapy evaluation appreciated. Continue Lovenox for DVT prophylaxis. Refer to subacute rehabilitation. Case discussed with medical case manager in detail. Possible discharge to [facility] tomorrow. Pending authorization. Upon discharge the patient will follow up with PMD .
[2018-03-28 23:40] VITALS: O2SAT 91
[2018-03-29] MEDS: Pantoprazole 40 mg EC Tab PO SCH (06:18)
[2018-03-29 08:40] VITALS: BP 134/57; PULSE 82; TEMP 97.8
[2018-03-29 09:46] LABS: BASO # 0.06 K/mm3 (0.0-2.0); BASO % 0.7 % (0.0-3.0); EOS # 0.2 (0.0-0.7); EOS % 2.5 % (1.5-5.0); GRAN # 5.94 (1.4-6.5); GRAN % 69.7 % (50.0-68.0); HEMOGLOBIN 11.8 g/dL (12.0-16.0); LYMPH # 1.2 (1.2-3.4); LYMPH % 14.1 % (22.0-35.0); MEAN CELL VOLUME 90.7 fl (80.0-105.0); MEAN CORPUSCULAR HEMOGLOBIN 28.9 pg (25.0-35.0); MEAN CORPUSCULAR HGB CONC 31.8 g/dl (31.0-37.0); MONO # 1.1 (0.1-0.6); RBC 4.09 10^6/uL (3.5-6.1); RED CELL DISTRIBUTION WIDTH 14.7 % (11.5-14.5); WHITE BLOOD COUNT 8.5 10^3/ul (4.5-11.0)
[2018-03-29 09:57] LABS: ALB/GLOB RATIO 1.2 (1.1-1.8); ALBUMIN 3.5 g/dL (3.0-4.8); CALCIUM 9.3 mg/dL (8.4-10.5)
[2018-03-29] MEDS: Enoxaparin 40 mg Syringe SC SCH (10:12)
--- NOTE | 2018-03-29 14:56 | PN ---
DATE: 03/29/2018 FOLLOWUP SUBJECTIVE: The patient denies any chest pain or shortness of breath. PHYSICAL EXAMINATION: VITAL SIGNS: Blood pressure 134/57, heart rate 82, temperature 97.8, respirations 20. HEENT: Normocephalic. CHEST: Clear. HEART: S1 and S2 regular. EXTREMITIES: No edema. LABORATORY DATA: Hemoglobin and hematocrit 11.8 and 37.1. White count and platelet count are within normal limit. Today's SMA-7 is within normal limits except for glucose of 163 and BUN of 25. ASSESSMENT: 1. Coronary artery disease with history of coronary stenting few years ago. 2. Moderately depressed left ventricular systolic function. 3. Mild aortic stenosis. 4. Status pot mechanical fall with comminuted left intraarticular tibial fracture, which is minimally displaced. RECOMMENDATIONS: Continue current aspirin 81 mg once a day, Cozaar at 100 mg once a day, Lipitor at 40 mg once a day, Lopressor 25 mg once a day, Lovenox 40 mg once a day, Plavix 75 mg once a day. The patient can be transferred to subacute rehab. If surgery is entertained in the future, then cardiac catheterization should be considered prior to surgery. Frank Olivia MD
--- NOTE | 2018-03-29 18:23 | CP.PCM.DIS ---
<Chato Pina - Last Filed: 03/29/18 18:13> Provider - Provider Date of Admission: 03/26/18 14:57 Attending physician: Al Miller MD Primary care physician: Gurpreet Lopez MD Consults: Ortho: Dr. Jarod Myles Cardio: Dr. Bassem Brewer Time Spent in preparation of Discharge (in minutes): 45 Hospital Course - Lab Results Lab Results: Most Recent Lab Values WBC 8.5 10^3/ul (4.5-11.0) D 03/29/18 09:40 RBC 4.09 10^6/uL (3.5-6.1) 03/29/18 09:40 Hgb 11.8 g/dL (12.0-16.0) L 03/29/18 09:40 Hct 37.1 % (36.0-48.0) 03/29/18 09:40 MCV 90.7 fl (80.0-105.0) 03/29/18 09:40 MCH 28.9 pg (25.0-35.0) 03/29/18 09:40 MCHC 31.8 g/dl (31.0-37.0) 03/29/18 09:40 RDW 14.7 % (11.5-14.5) H 03/29/18 09:40 Plt Count 333 10^3/uL (120.0-450.0) 03/29/18 09:40 MPV 10.0 fl (7.0-11.0) 03/29/18 09:40 Gran % 69.7 % (50.0-68.0) H 03/29/18 09:40 Lymph % (Auto) 14.1 % (22.0-35.0) L 03/29/18 09:40 [place] % (Auto) 13.0 % (1.0-6.0) H 03/29/18 09:40 Eos % (Auto) 2.5 % (1.5-5.0) 03/29/18 09:40 Baso % (Auto) 0.7 % (0.0-3.0) 03/29/18 09:40 Gran # 5.94 (1.4-6.5) 03/29/18 09:40 Lymph # (Auto) 1.2 (1.2-3.4) 03/29/18 09:40 [place] # (Auto) 1.1 (0.1-0.6) H 03/29/18 09:40 Eos # (Auto) 0.2 (0.0-0.7) 03/29/18 09:40 Baso # (Auto) 0.06 K/mm3 (0.0-2.0) 03/29/18 09:40 PT 11.5 SECONDS (9.4-12.5) 03/27/18 07:20 INR 1.00 03/27/18 07:20 APTT 24.9 Seconds (25.1-36.5) L 03/27/18 07:20 Sodium 139 mmol/L (132-148) 03/29/18 09:30 Potassium 3.8 mmol/L (3.6-5.0) 03/29/18 09:30 Chloride 103 mmol/L (98-107) 03/29/18 09:30 Carbon Dioxide 28 mmol/L (21-33) 03/29/18 09:30 Anion Gap 12 (10-20) 03/29/18 09:30 BUN 25 mg/dL (7-21) H 03/29/18 09:30 Creatinine 1.1 mg/dl (0.7-1.2) 03/29/18 09:30 Est GFR ( Amer) 58 03/29/18 09:30 Est GFR (Non-Af Amer) 48 03/29/18 09:30 Random Glucose 163 mg/dL (70-110) H 03/29/18 09:30 Calcium 9.3 mg/dL (8.4-10.5) 03/29/18 09:30 Phosphorus 4.2 mg/dL (2.5-4.5) 03/27/18 06:20 Magnesium 2.2 mg/dL (1.7-2.2) 03/29/18 09:30 Total Bilirubin 1.2 mg/dL (0.2-1.3) 03/29/18 09:30 AST 23 U/L (14-36) 03/29/18 09:30 ALT 18 U/L (7-56) 03/29/18 09:30 Alkaline Phosphatase 89 U/L (38-126) 03/29/18 09:30 Total Protein 6.6 g/dL (5.8-8.3) 03/29/18 09:30 Albumin 3.5 g/dL (3.0-4.8) 03/29/18 09:30 Globulin 3.0 gm/dL 03/29/18 09:30 Albumin/Globulin Ratio 1.2 (1.1-1.8) 03/29/18 09:30 Blood Type O NEGATIVE 03/26/18 14:00 Blood Type Confirm O NEGATIVE 03/26/18 14:40 Antibody Screen Negative 03/26/18 14:00 BBK History Checked No verified bt 03/26/18 14:00 - Hospital Course Hospital Course: Upon Admission: 78F w/ a PMH of CAD s/p stenting; most recent stent 2015 (ELENA), HTN, HLD, presented to [facility] on 03/26 after mechanical fall. Patient reported this past Saturday she tripped on her shoe and had injured her L knee at [facility]. Patient was discharged from ED on 03/22/17 w/ instructions for crutches, RICE and Rx for ultram. CT head performed on saturday showed no acute intracranial findings. She reported that again today while using a walker due to saturday's leg pain, she fell again. She denies any LOC, neurologic, or cardiologic symptoms at time of fall. Repeat CT Head showed no acute intracranial findings. Patient had CT of her L knee performed which showed Comminuted vertically oriented intra-articular fractures of the proximal tibia. Orthopedic was called who evaluated patient and has determined at this time no surgical intervention necessary at this time. Hospital Course: Pt was continued on her home meds including aspirin, lipitor, plavix, cozaar, lopressor as DVT prophylaxis with lovenox. She was evaluated by orthopedic surgery who recommended that pt is to be ambulatory, but non-weight bearing or just touch toe pressure for 4-6 weeks. Then she well be able to ambulate with more weightbearing and will require periodic xrays to make sure the fracture does not swell. Pt had been evaluated by PT, who reported that pt would benefit from skilled PT and CARLY to improve her balance, gait, transfers, to improve her functional mobility, maximize her independence. She was accepted at [facility] for CARLY. Upon Discharge: Vital signs stable. Pt in no acute distress. She denied new complaints. No acute nursing events overnight. Pain was well controlled. ROS was negative. Discharge Exam - Head Exam Head Exam: ATRAUMATIC, NORMOCEPHALIC - Eye Exam Eye Exam: EOMI, Normal appearance - ENT Exam ENT Exam: Mucous Membranes Dry, Mucous Membranes Moist - Neck Exam Neck exam: Normal Inspection - Respiratory Exam Respiratory Exam: NORMAL BREATHING PATTERN - Cardiovascular Exam Cardiovascular Exam: REGULAR RHYTHM, +S1, +S2 - GI/Abdominal Exam GI & Abdominal Exam: Normal Bowel Sounds, Unremarkable - Extremities Exam Additional comments: Distal pulses in RLE 2+, extremity warm cap refill mildly delayed Distal pulses in LLE difficult to palpate, extremity warm, cap refill mildly delayed BL LE are neurovascularly intact LLE is extended, somewhat swollen relative to R, Soft splint in place RUE/LUE both with some bruising in areas of elbow/forearm - Back Exam Back exam: NORMAL INSPECTION - Neurological Exam Neurological exam: Alert, Oriented x3 - Psychiatric Exam Psychiatric exam: Normal Affect, Normal Mood - Skin Skin Exam: Dry, Intact, Warm Discharge Plan - Follow Up Plan Condition: STABLE Disposition: REHAB FACILITY/REHAB UNIT Instructions: High Cholesterol, Coronary Heart Disease, Low Cholesterol, Saturated Fat, and Trans Fat Diet , High Blood Pressure (DC), Tibial Plateau Fracture (DC), Can Foods or Supplements Lower Cholesterol?, How to Prevent Blood Clots, Weight-Bearing Restrictions, Drugs to Help Lower Your Cholesterol Additional Instructions: Please follow up with your primary care doctor within 3-5 days after discharge from subacute rehab ([facility]) Please follow up with your orthopedic surgeon, Dr. Myles, within one week after discharge from [facility] ' Continue taking all medications as currently prescribed while at [facility] Dr. Myles has requested we give specific instructions to your CARLY as follows: 1. Continue DVT Prophylaxis for 3 weeks. You are taking Lovenox 40mg SC QD. Please continue as prescribed. 2. You can be ambulatory but non-weight bearing OR just touch toe pressure for 4-6 weeks. 3. No stairs to be done 4. Just gentle exercises such as quad sets, straight leg raising, etc. If your symptoms return, please seek emergency medical attention immediately. Referrals: Gurpreet Lopez MD [Primary Care Provider] - Jarod Myles DO [Staff Provider] - Bassem Brewer MD [Staff Provider] - <Perry Seay - Last Filed: 03/30/18 11:10> Provider - Provider Date of Admission: 03/26/18 14:57 Attending physician: Al Miller MD Primary care physician: Gurpreet Lopez MD Hospital Course - Lab Results Lab Results: Most Recent Lab Values WBC 8.5 10^3/ul (4.5-11.0) D 03/29/18 09:40 RBC 4.09 10^6/uL (3.5-6.1) 03/29/18 09:40 Hgb 11.8 g/dL (12.0-16.0) L 03/29/18 09:40 Hct 37.1 % (36.0-48.0) 03/29/18 09:40 MCV 90.7 fl (80.0-105.0) 03/29/18 09:40 MCH 28.9 pg (25.0-35.0) 03/29/18 09:40 MCHC 31.8 g/dl (31.0-37.0) 03/29/18 09:40 RDW 14.7 % (11.5-14.5) H 03/29/18 09:40 Plt Count 333 10^3/uL (120.0-450.0) 03/29/18 09:40 MPV 10.0 fl (7.0-11.0) 03/29/18 09:40 Gran % 69.7 % (50.0-68.0) H 03/29/18 09:40 Lymph % (Auto) 14.1 % (22.0-35.0) L 03/29/18 09:40 [place] % (Auto) 13.0 % (1.0-6.0) H 03/29/18 09:40 Eos % (Auto) 2.5 % (1.5-5.0) 03/29/18 09:40 Baso % (Auto) 0.7 % (0.0-3.0) 03/29/18 09:40 Gran # 5.94 (1.4-6.5) 03/29/18 09:40 Lymph # (Auto) 1.2 (1.2-3.4) 03/29/18 09:40 [place] # (Auto) 1.1 (0.1-0.6) H 03/29/18 09:40 Eos # (Auto) 0.2 (0.0-0.7) 03/29/18 09:40 Baso # (Auto) 0.06 K/mm3 (0.0-2.0) 03/29/18 09:40 PT 11.5 SECONDS (9.4-12.5) 03/27/18 07:20 INR 1.00 03/27/18 07:20 APTT 24.9 Seconds (25.1-36.5) L 03/27/18 07:20 Sodium 139 mmol/L (132-148) 03/29/18 09:30 Potassium 3.8 mmol/L (3.6-5.0) 03/29/18 09:30 Chloride 103 mmol/L (98-107) 03/29/18 09:30 Carbon Dioxide 28 mmol/L (21-33) 03/29/18 09:30 Anion Gap 12 (10-20) 03/29/18 09:30 BUN 25 mg/dL (7-21) H 03/29/18 09:30 Creatinine 1.1 mg/dl (0.7-1.2) 03/29/18 09:30 Est GFR ( Amer) 58 03/29/18 09:30 Est GFR (Non-Af Amer) 48 03/29/18 09:30 Random Glucose 163 mg/dL (70-110) H 03/29/18 09:30 Calcium 9.3 mg/dL (8.4-10.5) 03/29/18 09:30 Phosphorus 4.2 mg/dL (2.5-4.5) 03/27/18 06:20 Magnesium 2.2 mg/dL (1.7-2.2) 03/29/18 09:30 Total Bilirubin 1.2 mg/dL (0.2-1.3) 03/29/18 09:30 AST 23 U/L (14-36) 03/29/18 09:30 ALT 18 U/L (7-56) 03/29/18 09:30 Alkaline Phosphatase 89 U/L (38-126) 03/29/18 09:30 Total Protein 6.6 g/dL (5.8-8.3) 03/29/18 09:30 Albumin 3.5 g/dL (3.0-4.8) 03/29/18 09:30 Globulin 3.0 gm/dL 03/29/18 09:30 Albumin/Globulin Ratio 1.2 (1.1-1.8) 03/29/18 09:30 Blood Type O NEGATIVE 03/26/18 14:00 Blood Type Confirm O NEGATIVE 03/26/18 14:40 Antibody Screen Negative 03/26/18 14:00 BBK History Checked No verified bt 03/26/18 14:00 Attending/Attestation - Attestation I have personally seen and examined this patient.: Yes I have fully participated in the care of the patient.: Yes I have reviewed all pertinent clinical information, including history, physical exam and plan: Yes Notes (Text): 03/30/18 11:09 attending note; Patient seen and examined with resident. Patient is alert and awake. Patient is a 78 -year-old female with a past medical history of CAD s/p stenting; most recent stent 2014 (ELENA), HTN, HLD is admitted for a left tibial fracture. Patient is on a immobilizer. Orthopedic evaluation appreciated. No plan for surgery. History of coronary artery disease and stent placement; continue aspirin and Plavix. Cardiology evaluation appreciated. hypertension; continue metoprolol and Cozaar. physical therapy evaluation appreciated. Continue Lovenox for DVT prophylaxis. Refer to subacute rehabilitation. Case discussed with case specialist in detail. [facility] to [facility] for rehabilitation. Patient will follow up with Dr. Woodward at rehab. Upon discharge the patient will follow up with PMD .
== END 2018-03-29 15:24 | DRG 563 ==
LOC: ED 11:56 → ERH 14:57 → 5RNO 17:47
PROVIDERS: ADMIT Internal Medicine; ATTEND Internal Medicine
DX: S82.142A Displaced bicondylar fracture of left tibia, initial encounter for closed fracture (principal); W01.0XXA Fall on same level from slipping, tripping and stumbling without subsequent striking against object, initial encounter; E78.5 Hyperlipidemia, unspecified; I10 Essential (primary) hypertension; I25.10 Atherosclerotic heart disease of native coronary artery without angina pectoris; J44.9 Chronic obstructive pulmonary disease, unspecified; K59.00 Constipation, unspecified; I35.0 Nonrheumatic aortic (valve) stenosis; Y92.009 Unspecified place in unspecified non-institutional (private) residence as the place of occurrence of the external cause; Z79.02 Long term (current) use of antithrombotics/antiplatelets; Z95.5 Presence of coronary angioplasty implant and graft; Z87.891 Personal history of nicotine dependence